=== PATIENT | male | born 1970 | race Caucasian/White ===

== ENCOUNTER 2017-01-24 20:19 | Emergency (ER) | payer BC ==
[~2017-01-24] VITALS: Ht 177.8 cm; Wt 158.8 kg
[2017-01-24 20:24] VITALS: BP 170/81
--- NOTE | 2017-01-24 21:08 | PHYS DOC ---
Past Medical History Past Medical History: Depression, Diabetes-Type II, High Cholesterol, Hypertension Additional Past Medical Histor: Tublar sclorosis Past Surgical History: Appendectomy Additional Past Surgical Histo: vesectomy Alcohol Use: Occasionally Drug Use: None Adult General Chief Complaint Chief Complaint: WEAKNESS/GENERALIZED HPI HPI Patient is a 46 year old male who presents with feeling weak and dizzy. Sunday is when his symptoms started. He did eat at a [employer] buffet on Sunday is concerned that perhaps he got food poisoning. He's been having watery diarrhea ; greater than 10 episodes on Sunday. That has improved however he still had diarrhea even earlier today. None since his arrival. No blood in his stool. No fever. Some nausea but never any vomiting. No rash. 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 He's been feeling like he's been dehydrated and try to keep up with his fluid intake. Certainly more dizzy at work on Sunday. He then had left eye twitching and a headache. The headache is gone since Sunday but has persisted. He has had chronic headaches in the past and has tuberous sclerosis. Family is concerned his visits significant history of brain tumors in his family. No recent travel. No sick contacts. No chest pain, no SOA. No loss of vision or vision change. Review of Systems Review of Systems Constitutional: Denies fever or chills Eyes: Denies change in visual acuity, redness, or eye pain; left eye twitching HENT: Denies nasal congestion or sore throat Respiratory: Denies cough or shortness of breath Cardiovascular: No chest pain GI: Denies abdominal pain, nausea, vomiting, bloody stools. diarrhea on Sunday until today; none since this am. : Denies dysuria or hematuria Musculoskeletal: Denies back pain or joint pain Integument: Denies rash or skin lesions Neurologic: headache since Sunday, NO focal weakness or sensory changes Current Medications Current Medications Current Medications Medications (Trade) Dose Ordered Sig/Barber Start Time Stop Time Status Last Admin Dose Admin Sodium Chloride 1,000 ml @ 1,000 mls/hr Q1H 01/24/17 21:30 01/24/17 22:29 DC 01/24/17 21:35 1,000 MLS/HR Allergies Allergies Allergies Coded Allergies Type Severity Reaction Last Updated Verified Syfphom-Vut-Ruy Reductase Inhibitor Allergy Intermediate 5/24/17 Yes diazepam Allergy Intermediate 01/24/17 Yes Physical Exam Physical Exam Constitutional: Well developed, well nourished, no acute distress, non-toxic appearance. HENT: Normocephalic, atraumatic, bilateral external ears normal, oropharynx moist, no oral exudates, nose normal. Neck: Normal range of motion, no tenderness, supple, no stridor. Cardiovascular:Heart rate regular rhythm, no murmur Lungs & Thorax: Bilateral breath sounds clear to auscultation Abdomen: Bowel sounds normal, soft, no tenderness, no masses, no pulsatile masses. Skin: Warm, dry, no erythema, no rash. Back: No tenderness, no CVA tenderness. Extremities: No tenderness, no cyanosis, no clubbing, ROM intact, no edema. Neurologic: Alert and oriented X 3, normal motor function, normal sensory function, no focal deficits noted. Psychologic: Affect normal, judgement normal, mood normal. Current Patient Data Vital Signs Vital Signs Date Time Temp Pulse Resp B/P (MAP) Pulse Ox O2 Delivery O2 Flow Rate FiO2 01/24/17 20:24 98.6 66 20 170/81 (110) 99 Room Air 98.6 Lab Values Laboratory Tests Test 01/24/17 20:27 White Blood Count 7.3 x10^3/uL (4.0-11.0) Red Blood Count 4.65 x10^6/uL (4.30-5.70) Hemoglobin 13.5 g/dL (13.0-17.5) Hematocrit 39.7 % (39.0-53.0) Mean Corpuscular Volume 85 fL (79-100) Mean Corpuscular Hemoglobin 29 pg (25-35) Mean Corpuscular Hemoglobin Concent 34 g/dL (31-37) Red Cell Distribution Width 13.4 % (11.5-14.5) Platelet Count 155 x10^3/uL (140-400) Neutrophils (%) (Auto) 65 % (31-73) Lymphocytes (%) (Auto) 24 % (24-48) Monocytes (%) (Auto) 5 % (0-9) Eosinophils (%) (Auto) 6 % (0-3) H Basophils (%) (Auto) 1 % (0-3) Neutrophils # (Auto) 4.7 x10^3uL (1.8-7.7) Lymphocytes # (Auto) 1.7 x10^3/uL (1.0-4.8) Monocytes # (Auto) 0.4 x10^3/uL (0.0-1.1) Eosinophils # (Auto) 0.4 x10^3/uL (0.0-0.7) Basophils # (Auto) 0.0 x10^3/uL (0.0-0.2) Sodium Level 140 mmol/L (136-145) Potassium Level 4.4 mmol/L (3.5-5.1) Chloride Level 102 mmol/L (98-107) Carbon Dioxide Level 30 mmol/L (21-32) Anion Gap 8 (6-14) Blood Urea Nitrogen 21 mg/dL (8-26) Creatinine 1.2 mg/dL (0.7-1.3) Estimated GFR (Cockcroft-Gault) 64.9 Glucose Level 228 mg/dL (70-99) H Calcium Level 9.3 mg/dL (8.5-10.1) Magnesium Level 2.0 mg/dL (1.8-2.4) Total Bilirubin 0.3 mg/dL (0.2-1.0) Direct Bilirubin 0.1 mg/dL (0.0-0.2) Aspartate Amino Transferase (AST) 16 U/L (15-37) Alanine Aminotransferase (ALT) 33 U/L (16-63) Alkaline Phosphatase 76 U/L (46-116) Creatine Kinase 97 U/L (39-308) Creatine Kinase MB (Mass) 1.3 ng/mL (0.0-3.6) Creatine Kinase MB Relative Index 1.3 % (0-4) Troponin I Quantitative < 0.017 ng/mL (0.000-0.055) MS-Cdk-R-Type Natriuretic Peptide 157 pg/mL (0-124) H Total Protein 7.5 g/dL (6.4-8.2) Albumin 3.8 g/dL (3.4-5.0) Laboratory Tests 01/24/17 20:27 Laboratory Tests 01/24/17 20:27 EKG EKG Interpreted by myself at 2117 PM: NSR, rate 53, nonspecific ST changes; no STEMI. Radiology/Procedures Impressions: [facility] [address] [place] [address] IMAGING REPORT Signed PATIENT: ANSON SHAU ACCOUNT: [id number] : 1970 LOCATION: ER AGE: 46 SEX: M EXAM STATUS: REG ER ORD. PHYSICIAN: JULIEN HERNANDEZ MD REASON: headache has h/o Tuberous Sclerosis PROCEDURE: CT HEAD WO CONTRAST CT scan of the head without contrast 01/24/2017 CLINICAL HISTORY: Headache and weakness for the last 3 days. History of tuberous sclerosis. TECHNIQUE: Unenhanced contiguous, 5 mm axial sections were obtained through the head. One or more of the following individualized dose reduction techniques were utilized for this study: 1. Automated exposure control. 2. Adjustment of the mA and/or kV according to patient size. 3. Use of iterative reconstruction technique. FINDINGS: There is mild generalized parenchymal atrophy. Small calcified subependymal nodules are seen bilaterally consistent with the patient's history of tuberous sclerosis. No acute parenchymal abnormality is seen. No extra-axial fluid collection is noted. No skull fracture is seen. IMPRESSION: No acute intracranial abnormality is seen. Electronically signed by: Alber Conte MD (01/24/2017 9:31 PM) DICTATED and SIGNED BY: ALBER CONTE MD DATE: 01/24/172127 CC: JULIEN HERNANDEZ MD; FREDY ALMANZA APRN ~ Course & Med Decision Making Course & Med Decision Making Pertinent Labs and Imaging studies reviewed. (See chart for details) DDX: renal dysfunction; viral syndrome; cardiac ischemia; TIA; CVA Repeat BP 157/72, P 66, sat 98%, T 98.6 Reviewed findings w patient and family. CT head is negative. No acute findings noted. Home to f/u with PCP. 2220 PM: 140/68, sat 97%, P 62. Patient with NO headache after fluids infused. Feels much better and ready to go home. Reviewed all findings with patient and spouse. Spouse feels comfortable with patient going home. Dragon Disclaimer Dragon Disclaimer This electronic medical record was generated, in whole or in part, using a voice recognition dictation system. Departure Departure Disposition: HOME, SELF-CARE Condition: GOOD Referrals: FREDY ALMANZA APRN (PCP) Patient Instructions: Dehydration, Adult, Viral Syndrome Scripts Ondansetron (ZOFRAN ODT) 4 Mg Tab.rapdis 1 TAB SL Q8HRS, #10 TAB Prov: JULIEN HERNANDEZ MD 01/24/17 JULIEN HERNANDEZ MD January 24, 2017 21:08
[2017-01-24 21:17] LABS: BASO % 1 % (0-3); EOS % 6 % (0-3); HEMATOCRIT 39.7 % (39.0-53.0); HEMOGLOBIN 13.5 g/dL (13.0-17.5); LYMPH # 1.7 x10^3/uL (1.0-4.8); LYMPH % 24 % (24-48); MEAN CORPUSCULAR HEMOGLOBIN 29 pg (25-35); MEAN CORPUSCULAR HGB CONC 34 g/dL (31-37); MEAN CORPUSCULAR VOLUME 85 fL (79-100); MONO % 5 % (0-9); NEUT % 65 % (31-73); PLATELET COUNT 155 x10^3/uL (140-400); RED BLOOD COUNT 4.65 x10^6/uL (4.30-5.70); RED CELL DISTRIBUTION WIDTH 13.4 % (11.5-14.5); WHITE BLOOD COUNT 7.3 x10^3/uL (4.0-11.0)
[2017-01-24] MEDS ORDERED: IV NORMAL SALINE 1000ML BAG 1,000 ML IV SCH (21:30)
[2017-01-24 21:33] LABS: CALCIUM 9.3 mg/dL (8.5-10.1); CREATININE 1.2 mg/dL (0.7-1.3); GFR 64.9; POTASSIUM 4.4 mmol/L (3.5-5.1)
--- NOTE | 2017-01-24 21:35 | RAD ---
CT scan of the head without contrast 01/24/2017 CLINICAL HISTORY: Headache and weakness for the last 3 days. History of tuberous sclerosis. TECHNIQUE: Unenhanced contiguous, 5 mm axial sections were obtained through the head. One or more of the following individualized dose reduction techniques were utilized for this study: 1. Automated exposure control. 2. Adjustment of the mA and/or kV according to patient size. 3. Use of iterative reconstruction technique. FINDINGS: There is mild generalized parenchymal atrophy. Small calcified subependymal nodules are seen bilaterally consistent with the patient's history of tuberous sclerosis. No acute parenchymal abnormality is seen. No extra-axial fluid collection is noted. No skull fracture is seen. IMPRESSION: No acute intracranial abnormality is seen. Electronically signed by: Alber Conte MD (01/24/2017 9:31 PM)
[2017-01-24 21:40] LABS: ALBUMIN 3.8 g/dL (3.4-5.0); DIRECT BILIRUBIN 0.1 mg/dL (0.0-0.2); TOTAL BILIRUBIN 0.3 mg/dL (0.2-1.0); TOTAL PROTEIN 7.5 g/dL (6.4-8.2)
[2017-01-24 22:01] LABS: CKMB MASS 1.3 ng/mL (0.0-3.6)
[2017-01-24] MEDS ORDERED: ONDA4TAB10 SL (22:23)
--- NOTE | 2017-01-25 07:26 | EKG ---
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
== END 2017-01-25 | disposition home or self-care (01) ==
LOC: ER 20:19
DX: R42 Dizziness and giddiness (principal); R53.1 Weakness; R19.7 Diarrhea, unspecified; R11.0 Nausea; E11.9 Type 2 diabetes mellitus without complications; E78.00 Pure hypercholesterolemia, unspecified; I10 Essential (primary) hypertension; F32.9 Major depressive disorder, single episode, unspecified; Z90.49 Acquired absence of other specified parts of digestive tract; Z91.041 Radiographic dye allergy status; Z88.8 Allergy status to other drugs, medicaments and biological substances
CPT/HCPCS: 36415; 70450; 80048; 80076; 82550; 82553; 83735; 83880; 84484; 85027; 93005; 96360; 99285; J7030

== ENCOUNTER → 2017-03-19 | Outpatient (CLI) | payer BC ==
[~2017-03-19] MED LIST: ONDA4TAB10 SL
--- NOTE | 2017-03-19 16:32 | KCIC ---
Two-view calcaneus HISTORY: Left heel pain for one week. No known injury. Moderate size plantar calcaneal enthesophyte. No acute fracture or aggressive bone destruction. Joint spaces appear intact. Small ossicle identified just distal to the superior navicular bone appears chronic. Small osteophytes identified at the tibiotalar joint. IMPRESSION: No acute findings. Moderate plantar calcaneal enthesophyte. Electronically signed by: Bhupinder Iraheta MD (03/19/2017 4:29 PM) [facility]
== END | disposition home or self-care (01) ==
LOC: KCIC 15:40
PROVIDERS: ATTEND Nurse Practitioner Family
DX: M79.672 Pain in left foot (principal); M76.892 Other specified enthesopathies of left lower limb, excluding foot
CPT/HCPCS: 73650

== ENCOUNTER → 2017-09-24 | Outpatient (CLI) | payer BC ==
[~2017-09-24] MED LIST changes: -ONDA4TAB10 SL; +ZOLPIDEM 5 MG TABLET. PO
== END | disposition home or self-care (01) ==
LOC: SLPLAB 18:01
DX: G47.33 Obstructive sleep apnea (adult) (pediatric) (principal)
CPT/HCPCS: 95810

== ENCOUNTER → 2017-11-09 | Outpatient (CLI) | payer BC ==
[~2017-11-09] MED LIST changes: +IOHEXOL 180 MG/ML 10 ML VIAL.; -ZOLPIDEM 5 MG TABLET. PO; +methylPREDNISolone ACETATE 40 MG/ML VIAL.; +methylPREDNISolone ACETATE 80 MG/ML VIAL.
== END ==
LOC: PNCL 07:57
DX: M51.16 Intervertebral disc disorders with radiculopathy, lumbar region (principal); E11.9 Type 2 diabetes mellitus without complications; I10 Essential (primary) hypertension; G47.39 Other sleep apnea; E78.00 Pure hypercholesterolemia, unspecified; K21.9 Gastro-esophageal reflux disease without esophagitis; F32.9 Major depressive disorder, single episode, unspecified; M19.90 Unspecified osteoarthritis, unspecified site; Z90.49 Acquired absence of other specified parts of digestive tract; Z98.52 Vasectomy status
CPT/HCPCS: 62323; J1030; J1040; Q9965

== ENCOUNTER → 2017-11-23 | Outpatient (CLI) | payer BC | END | disposition home or self-care (01) | LOC: PNCL 10:28 | DX: M51.16 Intervertebral disc disorders with radiculopathy, lumbar region (principal); Z88.8 Allergy status to other drugs, medicaments and biological substances | CPT/HCPCS: 62323; J1030; J1040; Q9965 ==

== ENCOUNTER → 2017-12-07 | Outpatient (CLI) | payer BC | LOC: PNCL 10:05 | DX: M51.16 Intervertebral disc disorders with radiculopathy, lumbar region (principal) | CPT/HCPCS: 62323; J1030; J1040; Q9965 ==

== ENCOUNTER 2020-03-01 17:44 | Emergency (ER) | payer BC ==
[~2020-03-01] VITALS: Ht 177.8 cm; Wt 131.0 kg
[~2020-03-01 17:44] MED LIST changes: +ACET325T9 PO; +DICL112S2 TP; +DICL75TA PO; +GLIM4TAB8 PO; -IOHEXOL 180 MG/ML 10 ML VIAL.; +LEVO50TA5 PO; +LISI-334 PO; +METF10007 PO; +METO-239 PO; +ONDA4TAB10 SL; +PRAV20TA PO; +RANI150T2 PO; +SERT100T PO; -methylPREDNISolone ACETATE 40 MG/ML VIAL.; -methylPREDNISolone ACETATE 80 MG/ML VIAL.
[2020-03-01] MEDS ORDERED: ONDANSETRON PF 4 MG/2 ML VIAL. ONE (18:11)
[2020-03-01] MEDS ORDERED: IV NORMAL SALINE 1000ML BAG 1,000 ML IV ONE (18:15)
[2020-03-01] MEDS ORDERED: ONDANSETRON PF 4 MG/2 ML VIAL. IVP ONE (18:15)
[2020-03-01] MEDS ORDERED: KETOROLAC 30 MG/ML VIAL. IVP ONE (18:15)
[2020-03-01 18:27] LABS: BASO # 0.2 x10^3/uL (0.0-0.2); BASO % 2 % (0-3); EOS # 0.4 x10^3/uL (0.0-0.7); EOS % 4 % (0-3); HEMOGLOBIN 15.3 g/dL (13.0-17.5); LYMPH # 2.5 x10^3/uL (1.0-4.8); LYMPH % 25 % (24-48); MEAN CORPUSCULAR HEMOGLOBIN 29 pg (25-35); MEAN CORPUSCULAR HGB CONC 36 g/dL (31-37); MEAN CORPUSCULAR VOLUME 80 fL (79-100); MONO # 0.7 x10^3/uL (0.0-1.1); MONO % 7 % (0-9); NEUT # 6.2 x10^3/uL (1.8-7.7); NEUT % 62 % (31-73); PLATELET COUNT 234 x10^3/uL (140-400); RED BLOOD COUNT 5.37 x10^6/uL (4.30-5.70); RED CELL DISTRIBUTION WIDTH 14.1 % (11.5-14.5); WHITE BLOOD COUNT 9.9 x10^3/uL (4.0-11.0)
[2020-03-01 18:38] LABS: BILIRUBIN,URINE NEGATIVE (NEG); CLARITY,URINE CLEAR; COLOR,URINE YELLOW; NITRITE,URINE NEGATIVE (NEG); PROTEIN,URINE 30 mg/dL (NEG-TRACE); UROBILINOGEN,URINE 0.2 mg/dL (0.2 mg/dL)
[2020-03-01 18:40] LABS: CALCIUM 8.8 mg/dL (8.5-10.1); CREATININE 1.9 mg/dL (0.7-1.3); GFR 37.7
[2020-03-01 18:42] LABS: RBC,URINE >40 /HPF (0-2); SQUAMOUS EPITHELIAL CELL,UR FEW /LPF
--- NOTE | 2020-03-01 18:43 | PHYS DOC ---
Past Medical History Past Medical History: Depression, Diabetes-Type II, High Cholesterol, Hyp ertension Additional Past Medical Histor: Tublar sclorosis Past Surgical History: Appendectomy Additional Past Surgical Histo: vesectomy Smoking Status: Never Smoker Alcohol Use: Occasionally Drug Use: None General Adult EDM: Chief Complaint: FLANK PAIN HPI: HPI: Patient is a 49 year old male who presents with complaints of a sudden onset of right lower abdominal pain that radiates to his right flank and back. Started suddenly at approximately 1300 today. Patient describes the pain as if someone smacked him on the side with a 2 x 4. Patient denies diarrhea. Patient states he vomited 4 times since the onset of this pain, patient states he is not nauseated at this time. Reports his last normal BM was this morning large brown soft stool. Patient states his pain is a 10 out of 10 and has not taken anything for his pain. Patient denies chest, pain denies shortness of breath, denies fever chills. Patient denies anybody else living with him with the same signs and symptoms. Review of Systems: Review of Systems: Constitutional: Denies fever or chills. [] Eyes: Denies change in visual acuity. [] HENT: Denies nasal congestion or sore throat. [] Respiratory: Denies cough or shortness of breath. [] Cardiovascular: Denies chest pain or edema. [] GI: Denies bloody stools or diarrhea. Patient complains of right lower quadrant pain that radiates to his right flank and back. Patient complains of vomiting x4 since onset of pain. Patient denies nausea at this time. : Denies dysuria. [] Musculoskeletal: Patient complains of sudden onset right low back pain. [] Integument: Denies rash. [] Neurologic: Denies headache, focal weakness or sensory changes. [] Endocrine: Denies polyuria or polydipsia, patient denies urinary problems. [] Lymphatic: Denies swollen glands. [] Psychiatric: Patient reports a history of depression but denies a depressive state at this time. [] Heart Score: Risk Factors: Risk Factors: DM, Current or recent (<one month) smoker, HTN, HLP, family history of CAD, obesity. Risk Scores: Score 0 - 3: 2.5% MACE over next 6 weeks - Discharge Home Score 4 - 6: 20.3% MACE over next 6 weeks - Admit for Clinical Observation Score 7 - 10: 72.7% MACE over next 6 weeks - Early Invasive Strategies Family History: Family History: No significant family history related to this chief complaint of this ED visit Current Medications: Current Medications Medications (Trade) Dose Ordered Sig/Barber Start Time Stop Time Status Last Admin Dose Admin Ketorolac Tromethamine (Toradol 30mg Vial) 30 mg 1X ONCE 03/01/20 18:15 03/01/20 18:16 DC 03/01/20 18:17 30 MG Ondansetron HCl (Zofran) 4 mg 1X ONCE 03/01/20 18:15 03/01/20 18:16 DC 03/01/20 18:17 4 MG Sodium Chloride 1,000 ml @ 1,000 mls/hr 1X ONCE 03/01/20 18:15 03/01/20 19:14 03/01/20 18:17 1,000 MLS/HR Allergies: Allergies: Allergies Coded Allergies Type Severity Reaction Last Updated Verified Xfdnicp-Psl-Blk Reductase Inhibitor Allergy Intermediate 01/24/17 Yes diazepam Allergy Intermediate 01/24/17 Yes Physical Exam: PE: Constitutional: Well developed, well nourished, no acute distress, non-toxic appearance. [] HENT: Normocephalic, atraumatic, bilateral external ears normal, oropharynx moist, no oral exudates, nose normal. [] Eyes: PERRLA, EOMI, conjunctiva normal, no discharge. [] Neck: Normal range of motion, no tenderness, supple, no stridor. [] Cardiovascular:Heart rate regular rhythm, no murmur [] Lungs & Thorax: Bilateral breath sounds clear to auscultation [] Abdomen: Bowel sounds hypoactive, soft with tenderness to the right lower quadrant that radiates to his right flank and back, no rebound tenderness, negative psoas sign, no masses, no pulsatile masses. [] Skin: Warm, dry, no erythema, no rash. [] Back: CVA tenderness on the right Extremities: No tenderness, no cyanosis, no clubbing, ROM intact, no edema. [] Neurologic: Alert and oriented X 3, normal motor function, normal sensory function, no focal deficits noted. [] Psychologic: Affect normal, judgement normal, mood normal. [] Current Patient Data: Vital Signs: Vital Signs Date Time Temp Pulse Resp B/P (MAP) Pulse Ox O2 Delivery O2 Flow Rate FiO2 03/01/20 17:44 97.7 61 18 140/76 (97) 96 Room Air 97.7 EKG: EKG: [] Radiology/Procedures: Radiology/Procedures: [] Exam: CT of abdomen and pelvis without contrast INDICATION: Right flank pain TECHNIQUE: Sequential axial images through the abdomen and pelvis obtained without IV contrast. Sagittal and coronal reformatted images were reconstructed from the axial data and reviewed. Comparisons: None FINDINGS: Heart size is normal. No pericardial effusion. Visualized lung bases are clear. No pleural effusion. Evaluation of solid organs is limited secondary to noncontrast technique. Liver, spleen, pancreas, gallbladder and adrenals are unremarkable. No perinephric inflammation or hydronephrosis. There is a 2 mm calculus at the distal right ureter with mild right-sided hydroureter ureter. Nonobstructing 6 mm calculus at the lower pole of the left kidney. There are numerous renal lesions bilaterally some of which contain macroscopic fat representing angiomyolipomas others are incompletely characterized. Bladder is decompressed not well evaluated. Prostate is not enlarged. Large and small bowel are unremarkable. Appendix is not identified. No free intra-abdominal air or fluid. No obstruction. Abdominal aorta has a normal course and caliber. No enlarged abdominal lymph nodes are identified. No suspicious osseous lesions or acute fractures. IMPRESSION: 1. A 2 mm calculus the distal right ureter with mild right-sided hydronephrosis and hydroureter. Several other nonobstructing renal calculi predominantly in the left kidney. 2. Numerous renal lesions which are incompletely characterized on this noncontrast study. Further evaluation with nonemergent/outpatient renal protocol CT or MRI is recommended. Exposure: One or more of the following in the visualized dose reduction techniques were utilized for this examination: 1. Automated exposure control 2. Adjustment of the MA and/or KV according to patient size 3. Use of iterative of reconstructive technique Electronically signed by: Nadine Mcarthur MD (03/01/2020 6:53 PM) [id number] DICTATED and SIGNED BY: NADINE MCARTHUR MD DATE: 03/01/20 1853 Course & Med Decision Making: Course & Med Decision Making Pertinent Labs and Imaging studies reviewed. (See chart for details) 49-year-old male patient presents to the ED with complaints of a sudden onset of right lower quadrant pain that radiates to his right flank and back. Reports the onset of pain started approximately 1300 today. Patient denies any injury or trauma to this area. Patient describes this pain as a 2 x 4 smacking him in the side. Patient did not take anything for this pain prior to arrival. Patient did vomit 4 times prior to arrival to this ED. Initially he denied nausea, but vomited x1 in the ED in which he was treated with 4 mg IV Zofran that resolved his nausea. Patient presentation and physical exam was consistent with a right renal calculi that was supported with a CAT scan that showed a 2 mm calculus in the distal right ureter with mild right sided hydronephrosis and hydroureter the CAT scan also showed several other.non-obstructing renal calculi within the left kidney this CAT scan was read by radiologist Dr. Mcarthur. The patient was treated with 30 mg IV Toradol which resolved his pain from a 10 out of 10 to a 0 out of 10. Discussed with patient the finding within the CAT scan and need for follow-up with a urologist soon. ED plan is to discharge patient to home with urine strainer, prescriptions for p.o. Motrin and Vicodin. Discussed with patient return to ER if pain returns uncontrolled by given prescriptions or for other problems. Joanna Disclaimer: Joanna Disclaimer: This electronic medical record was generated, in whole or in part, using a voice recognition dictation system. Departure Departure Impression: Primary Impression: Kidney stone on right side Additional Impression: Kidney calculi Disposition: HOME, SELF-CARE Condition: IMPROVED Referrals: FREDY ALMANZA APRN (PCP) Patient Instructions: Kidney Stones Additional Instructions: FOLLOW UP WITH A UROLOGIST THIS WEEK. Scripts Hydrocodone/Apap 5-325 (NORCO 5-325 TABLET) 1 Each Tablet 1 TAB PO PRN Q4-6HRS PRN for PAIN, #14 TAB 0 Refills Prov: MICHELLE KUMAR APRN 03/01/20 Ibuprofen (IBUPROFEN) 800 Mg Tablet 800 MG PO PRN Q8HRS PRN for INFLAMMATION, #14 TAB 0 Refills Prov: MICHELLE KUMAR APRN 03/01/20 Justicifation of Admission Dx: Justifications for Admission: Justification of Admission Dx: N/A MICHELLE KUMAR APRN Mar 01, 2020 18:43
[2020-03-01 18:45] LABS: WBC,URINE OCC /HPF (0-4)
[2020-03-01 18:46] LABS: ALBUMIN/GLOBULIN RATIO 1.1 (1.0-1.7); BACTERIA,URINE FEW /HPF (0-FEW); TOTAL BILIRUBIN 0.5 mg/dL (0.2-1.0); TOTAL PROTEIN 7.7 g/dL (6.4-8.2)
--- NOTE | 2020-03-01 18:56 | RAD ---
Exam: CT of abdomen and pelvis without contrast INDICATION: Right flank pain TECHNIQUE: Sequential axial images through the abdomen and pelvis obtained without IV contrast. Sagittal and coronal reformatted images were reconstructed from the axial data and reviewed. Comparisons: None FINDINGS: Heart size is normal. No pericardial effusion. Visualized lung bases are clear. No pleural effusion. Evaluation of solid organs is limited secondary to noncontrast technique. Liver, spleen, pancreas, gallbladder and adrenals are unremarkable. No perinephric inflammation or hydronephrosis. There is a 2 mm calculus at the distal right ureter with mild right-sided hydroureter ureter. Nonobstructing 6 mm calculus at the lower pole of the left kidney. There are numerous renal lesions bilaterally some of which contain macroscopic fat representing angiomyolipomas others are incompletely characterized. Bladder is decompressed not well evaluated. Prostate is not enlarged. Large and small bowel are unremarkable. Appendix is not identified. No free intra-abdominal air or fluid. No obstruction. Abdominal aorta has a normal course and caliber. No enlarged abdominal lymph nodes are identified. No suspicious osseous lesions or acute fractures. IMPRESSION: 1. A 2 mm calculus the distal right ureter with mild right-sided hydronephrosis and hydroureter. Several other nonobstructing renal calculi predominantly in the left kidney. 2. Numerous renal lesions which are incompletely characterized on this noncontrast study. Further evaluation with nonemergent/outpatient renal protocol CT or MRI is recommended. Exposure: One or more of the following in the visualized dose reduction techniques were utilized for this examination: 1. Automated exposure control 2. Adjustment of the MA and/or KV according to patient size 3. Use of iterative of reconstructive technique Electronically signed by: Nadine Shaw MD (03/01/2020 6:53 PM) [id number]
[2020-03-01] MEDS ORDERED: IBUP-1060 PO (19:29)
[2020-03-01] MEDS ORDERED: HYDR-3164 PO ×2 (19:29→19:31)
[2020-03-01 19:35] VITALS: BP 128/75
== END 2020-03-01 19:43 | disposition home or self-care (01) ==
LOC: ER 17:44
DX: N13.2 Hydronephrosis with renal and ureteral calculous obstruction (principal); R10.32 Left lower quadrant pain; R11.2 Nausea with vomiting, unspecified; F32.9 Major depressive disorder, single episode, unspecified; E11.9 Type 2 diabetes mellitus without complications; E78.00 Pure hypercholesterolemia, unspecified; I10 Essential (primary) hypertension; Z90.89 Acquired absence of other organs; Z98.890 Other specified postprocedural states; Z79.899 Other long term (current) drug therapy; Z88.8 Allergy status to other drugs, medicaments and biological substances
CPT/HCPCS: 36415; 74176; 80053; 81001; 85025; 96361; 96374; 96375; 99284; J1885; J2405; J7030

== ENCOUNTER 2021-01-24 15:33 | Emergency (ER) | payer BC ==
[~2021-01-24] VITALS: Ht 177.8 cm; Wt 131.8 kg
[~2021-01-24 15:33] MED LIST changes: +HYDR-3164 PO; +IBUP-1060 PO; -LISI-334 PO; +LISI20TA18 PO
[2021-01-24] MEDS ORDERED: FAMOTIDINE 20 MG/2 ML VIAL IVP ONE (18:00)
[2021-01-24] MEDS ORDERED: ONDANSETRON PF 4 MG/2 ML VIAL. IVP ONE (18:00)
[2021-01-24] MEDS ORDERED: IV NORMAL SALINE 1000ML BAG 1,000 ML IV ONE ×2 (18:00→19:30)
[2021-01-24 18:02] LABS: BILIRUBIN,URINE NEGATIVE (NEG); CLARITY,URINE TURBID; COLOR,URINE YELLOW; NITRITE,URINE NEGATIVE (NEG); PROTEIN,URINE 30 mg/dL (NEG-TRACE); UROBILINOGEN,URINE 0.2 mg/dL (0.2 mg/dL)
[2021-01-24 18:10] LABS: BASO # 0.1 x10^3/uL (0.0-0.2); BASO % 1 % (0-3); EOS # 0.1 x10^3/uL (0.0-0.7); EOS % 1 % (0-3); HEMATOCRIT 42.1 % (39.0-53.0); HEMOGLOBIN 14.7 g/dL (13.0-17.5); LYMPH % 10 % (24-48); MEAN CORPUSCULAR HEMOGLOBIN 28 pg (25-35); MEAN CORPUSCULAR HGB CONC 35 g/dL (31-37); MEAN CORPUSCULAR VOLUME 79 fL (79-100); MONO # 0.4 x10^3/uL (0.0-1.1); MONO % 4 % (0-9); NEUT # 8.7 x10^3/uL (1.8-7.7); NEUT % 85 % (31-73); PLATELET COUNT 166 x10^3/uL (140-400); RED BLOOD COUNT 5.33 x10^6/uL (4.30-5.70); WHITE BLOOD COUNT 10.3 x10^3/uL (4.0-11.0)
[2021-01-24 18:18] LABS: BACTERIA,URINE FEW /HPF (0-FEW); RBC,URINE >40 /HPF (0-2)
[2021-01-24 18:19] LABS: WBC,URINE 0 /HPF (0-4)
[2021-01-24 18:25] LABS: CALCIUM 8.6 mg/dL (8.5-10.1); CREATININE 1.5 mg/dL (0.7-1.3); GFR 49.3; POTASSIUM 4.6 mmol/L (3.5-5.1)
[2021-01-24 18:31] LABS: ALBUMIN 4.3 g/dL (3.4-5.0); ALBUMIN/GLOBULIN RATIO 1.2 (1.0-1.7); TOTAL BILIRUBIN 0.4 mg/dL (0.2-1.0); TOTAL PROTEIN 7.9 g/dL (6.4-8.2)
[2021-01-24] MEDS ORDERED: INSULIN REGULAR 100 UNIT/ML 3ML VIAL. IV ONE (19:30)
--- NOTE | 2021-01-24 20:18 | PHYS DOC ---
Past Medical History Past Medical History: Depression, Diabetes-Type II, High Cholesterol, Hypertension, Other Additional Past Medical Histor: Tublar sclorosis Past Surgical History: Appendectomy Additional Past Surgical Histo: vesectomy Smoking Status: Never Smoker Alcohol Use: Rarely Drug Use: None General Adult EDM: Chief Complaint: HYPERGLYCEMIA HPI: HPI: Patient is a 50 year old male with history of diabetes type 2 who presents today complaining of hyperglycemia. Patient states his blood glucose today was 426. He is on Metformin. Patient is also complaining of nausea and vomiting and slight left lower quadrant abdominal pain that he states is feeling better. Denies anything exacerbating or relieving his pain Review of Systems: Review of Systems: Constitutional: Denies fever or chills. [] Eyes: Denies change in visual acuity. [] HENT: Denies nasal congestion or sore throat. [] Respiratory: Denies cough or shortness of breath. [] Cardiovascular: Denies chest pain or edema. [] GI: Reports left lower quadrant abdominal pain with nausea and vomiting, denies bloody stools or diarrhea. [] : Denies dysuria. [] Musculoskeletal: Denies back pain or joint pain. [] Integument: Denies rash. [] Neurologic: Denies headache, focal weakness or sensory changes. [] Endocrine: Reports hypoglycemia Psychiatric: Denies depression or anxiety. [] Heart Score: C/O Chest Pain: N/A Risk Factors: Risk Factors: DM, Current or recent (<one month) smoker, HTN, HLP, family history of CAD, obesity. Risk Scores: Score 0 - 3: 2.5% MACE over next 6 weeks - Discharge Home Score 4 - 6: 20.3% MACE over next 6 weeks - Admit for Clinical Observation Score 7 - 10: 72.7% MACE over next 6 weeks - Early Invasive Strategies Current Medications: Current Medications Medications (Trade) Dose Ordered Sig/Barber Start Time Stop Time Status Last Admin Dose Admin Famotidine (Pepcid Vial) 20 mg 1X ONCE 01/24/21 18:00 01/24/21 18:01 DC 01/24/21 18:17 20 MG Insulin Human Regular (HumuLIN R VIAL) 8 unit 1X ONCE 01/24/21 19:30 01/24/21 19:31 DC 01/24/21 19:31 8 UNIT Ondansetron HCl (Zofran) 4 mg 1X ONCE 01/24/21 18:00 01/24/21 18:01 DC 01/24/21 18:17 4 MG Sodium Chloride 1,000 ml @ 1,000 mls/hr 1X ONCE 01/24/21 19:30 01/24/21 20:29 01/24/21 19:30 1,000 MLS/HR Allergies: Allergies: Allergies Coded Allergies Type Severity Reaction Last Updated Verified Gwrtnee-Kmp-Ozu Reductase Inhibitor Allergy Intermediate 01/24/17 Yes diazepam Allergy Intermediate 01/24/17 Yes Physical Exam: PE: Constitutional: Well developed, well nourished, no acute distress, non-toxic ap pearance. [] HENT: Normocephalic, atraumatic, bilateral external ears normal, oropharynx moist, no oral exudates, nose normal. [] Eyes: PERRLA, EOMI, conjunctiva normal, no discharge. [] Neck: Normal range of motion, no tenderness, supple, no stridor. [] Cardiovascular:Heart rate regular rhythm, no murmur [] Lungs & Thorax: Bilateral breath sounds clear to auscultation [] Abdomen: Obese abdomen. Bowel sounds normal, soft, no tenderness, no masses, no pulsatile masses. [] Skin: Warm, dry, no erythema, no rash. [] Back: No tenderness, no CVA tenderness. [] Extremities: No tenderness, no cyanosis, no clubbing, ROM intact, no edema. [] Neurologic: Alert and oriented X 3, normal motor function, normal sensory function, no focal deficits noted. [] Psychologic: Affect normal, judgement normal, mood normal. [] Current Patient Data: Labs: Laboratory Tests Test 01/24/21 16:45 01/24/21 18:01 01/24/21 18:25 Urine Collection Type Unknown Urine Color Yellow Urine Clarity Turbid Urine pH 5.0 (<5.0-8.0) Urine Specific [place] >=1.030 (1.000-1.030) Urine Protein 30 mg/dL (NEG-TRACE) Urine Glucose (UA) >=1000 mg/dL (NEG) Urine Ketones (Stick) Negative mg/dL (NEG) Urine Blood Large (NEG) Urine Nitrite Negative (NEG) Urine Bilirubin Negative (NEG) Urine Urobilinogen Dipstick 0.2 mg/dL (0.2 mg/dL) Urine Leukocyte Esterase Negative (NEG) Urine RBC >40 /HPF (0-2) Urine WBC 0 /HPF (0-4) Urine Squamous Epithelial Cells Few /LPF Urine Bacteria Few /HPF (0-FEW) Urine Mucus Slight /LPF White Blood Count 10.3 x10^3/uL (4.0-11.0) Red Blood Count 5.33 x10^6/uL (4.30-5.70) Hemoglobin 14.7 g/dL (13.0-17.5) Hematocrit 42.1 % (39.0-53.0) Mean Corpuscular Volume 79 fL (79-100) Mean Corpuscular Hemoglobin 28 pg (25-35) Mean Corpuscular Hemoglobin Concent 35 g/dL (31-37) Red Cell Distribution Width 14.0 % (11.5-14.5) Platelet Count 166 x10^3/uL (140-400) Neutrophils (%) (Auto) 85 % (31-73) H Lymphocytes (%) (Auto) 10 % (24-48) L Monocytes (%) (Auto) 4 % (0-9) Eosinophils (%) (Auto) 1 % (0-3) Basophils (%) (Auto) 1 % (0-3) Neutrophils # (Auto) 8.7 x10^3/uL (1.8-7.7) H Lymphocytes # (Auto) 1.0 x10^3/uL (1.0-4.8) Monocytes # (Auto) 0.4 x10^3/uL (0.0-1.1) Eosinophils # (Auto) 0.1 x10^3/uL (0.0-0.7) Basophils # (Auto) 0.1 x10^3/uL (0.0-0.2) Sodium Level 136 mmol/L (136-145) Potassium Level 4.6 mmol/L (3.5-5.1) Chloride Level 100 mmol/L (98-107) Carbon Dioxide Level 22 mmol/L (21-32) Anion Gap 14 (6-14) Blood Urea Nitrogen 19 mg/dL (8-26) Creatinine 1.5 mg/dL (0.7-1.3) H Estimated GFR (Cockcroft-Gault) 49.3 BUN/Creatinine Ratio 13 (6-20) Glucose Level 434 mg/dL (70-99) H Calcium Level 8.6 mg/dL (8.5-10.1) Total Bilirubin 0.4 mg/dL (0.2-1.0) Aspartate Amino Transferase (AST) 12 U/L (15-37) L Alanine Aminotransferase (ALT) 33 U/L (16-63) Alkaline Phosphatase 97 U/L (46-116) Total Protein 7.9 g/dL (6.4-8.2) Albumin 4.3 g/dL (3.4-5.0) Albumin/Globulin Ratio 1.2 (1.0-1.7) Glucose (Fingerstick) 435 mg/dL (70-99) H Laboratory Tests 01/24/21 18:01 Laboratory Tests 01/24/21 18:01 Vital Signs: Vital Signs Date Time Temp Pulse Resp B/P (MAP) Pulse Ox O2 Delivery O2 Flow Rate FiO2 01/24/21 19:00 70 24 136/69 (91) 95 Room Air 01/24/21 17:53 97.6 97.6 EKG: EKG: [] Radiology/Procedures: Radiology/Procedures: [] Course & Med Decision Making: Course & Med Decision Making Pertinent Labs and Imaging studies reviewed. (See chart for details) This is a 50-year-old male patient presented to the ED today complaining of hyperglycemia, blood glucose was 426 at home, currently on Metformin. CBC with no acute findings, CMP with glucose of 434, anion gap is normal, creatinine 1.5, this is around his baseline, patient has history of kidney disease. UA negative for infection, negative for ketones Talked to patient about his results, he states he already called his PCP and they will adjust his diabetes medicine tomorrow morning. He was given IV fluids in the ED as well as insulin. Blood glucose will be checked prior to discharge. Dragon Disclaimer: Dragon Disclaimer: This electronic medical record was generated, in whole or in part, using a voice recognition dictation system. Departure Departure Impression: Primary Impression: Hyperglycemia Disposition: HOME / SELF CARE / HOMELESS Condition: STABLE Referrals: FREDY ALMANZA APRN (PCP) Follow-up tomorrow Patient Instructions: Hyperglycemia Additional Instructions: You were evaluated in the emergency room, your glucose today was 434, your anion gap is normal, your creatinine was 1.5 with a normal BUN. Please let your doctor know this results and hopefully they can adjust your diabetes medicines MCKENZIE TAVERAS [employer] January 24, 2021 20:18
[2021-01-24 20:30] VITALS: BP 147/89
== END 2021-01-24 21:15 | disposition home or self-care (01) ==
LOC: ER 15:33
DX: E11.65 Type 2 diabetes mellitus with hyperglycemia (principal); R11.2 Nausea with vomiting, unspecified; R10.32 Left lower quadrant pain; E78.00 Pure hypercholesterolemia, unspecified; I10 Essential (primary) hypertension; Z90.89 Acquired absence of other organs; Z91.041 Radiographic dye allergy status; Z88.8 Allergy status to other drugs, medicaments and biological substances
CPT/HCPCS: 36415; 80053; 81001; 82962; 85025; 96361; 96374; 96375; 99285; J1815; J2405; J3490; J7030

== ENCOUNTER 2021-12-31 21:05 | Emergency (ER) | payer BC, OTHER ==
[~2021-12-31] VITALS: Ht 177.8 cm; Wt 131.0 kg
[2021-12-31] MEDS ORDERED: CEPHALEXIN 250 MG CAPSULE. PO STA (21:29)
[2021-12-31] MEDS ORDERED: SMZ/TMP 800/160MG TABLET. PO ONE (21:30)
[2021-12-31] MEDS ORDERED: ACETAMINOPHEN 500 MG TABLET PO ONE (21:30)
[2021-12-31] MEDS ORDERED: IBUPROFEN 400 MG TABLET. PO ONE (21:30)
[2021-12-31] MEDS ORDERED: SULF1TAB24 PO (21:46)
[2021-12-31] MEDS ORDERED: CEPH500T PO (21:46)
--- NOTE | 2021-12-31 21:46 | PHYS DOC ---
Past Medical History Past Medical History: Depression, Diabetes-Type II, High Cholesterol, Hyp ertension, Other Additional Past Medical Histor: Tublar sclorosis Past Surgical History: Appendectomy, Other Additional Past Surgical Histo: Vasetomy, surgery to left knee Smoking Status: Never Smoker Alcohol Use: Occasionally Drug Use: None General Adult EDM: Chief Complaint: GROIN PAIN HPI: HPI: Patient is a 51 year old male who presented to the ER for evaluation of tender lesion between his scrotum area and the anus area. It has been there for two days and getting more painful. No scrotal pain, no rectal pain, no penile pain. No fever. Patient has history of DM. Review of Systems: Review of Systems: Constitutional: Denies fever or chills. [] Eyes: Denies change in visual acuity. [] HENT: Denies nasal congestion or sore throat. [] Respiratory: Denies cough or shortness of breath. [] Cardiovascular: Denies chest pain or edema. [] GI: Denies abdominal pain, nausea, vomiting, bloody stools or diarrhea. [] : Denies dysuria. [] Musculoskeletal: Denies back pain or joint pain. [] Integument: POSITIVE FOR PAINFUL LESION IN GROIN AREA. Neurologic: Denies headache, focal weakness or sensory changes. [] Endocrine: Denies polyuria or polydipsia. [] Lymphatic: Denies swollen glands. [] Psychiatric: Denies depression or anxiety. [] Heart Score: C/O Chest Pain: N/A Risk Factors: Risk Factors: DM, Current or recent (<one month) smoker, HTN, HLP, family history of CAD, obesity. Risk Scores: Score 0 - 3: 2.5% MACE over next 6 weeks - Discharge Home Score 4 - 6: 20.3% MACE over next 6 weeks - Admit for Clinical Observation Score 7 - 10: 72.7% MACE over next 6 weeks - Early Invasive Strategies Current Medications: Current Medications Medications (Trade) Dose Ordered Sig/Barber Start Time Stop Time Status Last Admin Dose Admin Acetaminophen (Tylenol) 1,000 mg 1X ONCE 12/31/21 21:30 12/31/21 21:33 DC Cephalexin HCl (Keflex) 500 mg 1X STAT 12/31/21 21:29 12/31/21 21:33 DC Ibuprofen (Motrin) 800 mg 1X ONCE 12/31/21 21:30 12/31/21 21:33 DC Trimethoprim/ Sulfamethoxazole (Bactrim Ds) 1 tab 1X ONCE 12/31/21 21:30 12/31/21 21:33 DC Allergies: Allergies: Allergies Coded Allergies Type Severity Reaction Last Updated Verified [id number] Reductase Inhibitor Allergy Intermediate 01/24/17 Yes diazepam Allergy Intermediate 01/24/17 Yes Physical Exam: PE: Constitutional: Well developed, well nourished, no acute distress, non-toxic ap pearance. [] HENT: Normocephalic, atraumatic, bilateral external ears normal, oropharynx moist, no oral exudates, nose normal. [] Eyes: PERRLA, EOMI, conjunctiva normal, no discharge. [] Neck: Normal range of motion, no tenderness, supple, no stridor. [] Skin: Warm, dry. There is a tender skin lesion with mild induration and erythema on the area between the scrotum and anus area. No crepitus. Back: No tenderness, no CVA tenderness. [] Extremities: No tenderness, no cyanosis, no clubbing, ROM intact, no edema. [] Neurologic: Alert and oriented X 3, normal motor function, normal sensory function, no focal deficits noted. [] Psychologic: Affect normal, judgement normal, mood normal. [] Current Patient Data: Vital Signs: Vital Signs Date Time Temp Pulse Resp B/P (MAP) Pulse Ox O2 Delivery O2 Flow Rate FiO2 12/31/21 21:10 98.0 73 17 165/78 (107) 98 Room Air 98.0 EKG: EKG: [] Radiology/Procedures: Radiology/Procedures: [] Course & Med Decision Making: Course & Med Decision Making Pertinent Labs and Imaging studies reviewed. (See chart for details) Patient appeared to have an infected ingrown hair causing small abscess with cellulitis in the area between scrotum and anus area. NO SROTUM OR ANUS INVOLVEMENT. Dragon Disclaimer: Dragon Disclaimer: This electronic medical record was generated, in whole or in part, using a voice recognition dictation system. Departure Departure Impression: Primary Impression: Cellulitis Disposition: HOME / SELF CARE / HOMELESS Condition: STABLE Referrals: FREDY ALMANZA APRN (PCP) Follow up with your doctor in 2 days for reevaluation Patient Instructions: Cellulitis Additional Instructions: Thank you for visiting our Emergency Department. We appreciate you trusting us with your care. If any additional problems come up don't hesitate to return to visit us. Please follow up with your primary care provider so they can plan ad ditional care if needed and know about the problem that you had. If symptoms worsen come back to the Emergency Department. Any concerning symptoms that start such as chest pain, shortness of air, weakness or numbness on one side of the body, running high fevers or any other concerning symptoms return to the ER. Scripts Cephalexin (CEPHALEXIN) 500 Mg Tablet 1 TAB PO QID for 10 Days, #40 TAB Prov: SAMMY VASQUEZ DO 12/31/21 Sulfamethoxazole/Trimethoprim (BACTRIM DS TABLET) 1 Each Tablet 1 TAB PO BID for 10 Days, #20 TAB 0 Refills Prov: SAMMY VASQUEZ DO 12/31/21 SAMMY VASQUEZ DO Dec 31, 2021 21:46
[2021-12-31 22:07] VITALS: BP 136/83
== END 2021-12-31 22:35 | disposition home or self-care (01) ==
LOC: ER 21:05
DX: N49.2 Inflammatory disorders of scrotum (principal); K61.0 Anal abscess; E11.9 Type 2 diabetes mellitus without complications; E78.00 Pure hypercholesterolemia, unspecified; I10 Essential (primary) hypertension; Z91.041 Radiographic dye allergy status; Z88.8 Allergy status to other drugs, medicaments and biological substances
CPT/HCPCS: 99284